=== PATIENT | male | born 1975 | race Caucasian/White ===

== ENCOUNTER 2018-08-29 13:58 | Outpatient (CLI) | payer OTHER ==
--- NOTE | 2018-08-29 14:15 | RAD ---
EXAM: Lumbar spine 3 views: HISTORY: Chronic low back pain COMPARISON: None FINDINGS: Mild lumbar spondylosis, with narrowing particularly at L5-S1 and L4-L5. No evidence for acute fracture or dislocation or significant acute process. No evidence for significant malalignment. Disc spaces are adequately preserved. IMPRESSION: Mild spondylosis.
== END 2018-08-29 13:59 | disposition home or self-care (01) ==
LOC: BICRAD 13:58
PROVIDERS: ATTEND Family Medicine
DX: M54.5 Low back pain (principal); G89.29 Other chronic pain; M47.816 Spondylosis without myelopathy or radiculopathy, lumbar region
CPT/HCPCS: 72100